=== PATIENT | female | born 1945 | race Caucasian/White ===

== ENCOUNTER 2018-05-12 06:33 | Inpatient (IN) ==
[2018-05-05 12:22] LABS: Appearance,Urine CLEAR; Bilirubin,Urine NEG (NEG); Color,Urine YELLOW; Glucose,Urine (UA) NEGATIVE (NEG); Leukocyte Esterase,Urine NEG /uL (NEG); Protein,Urine NEG (NEG); Specific Gravity,Urine 1.011 (1.000-1.035); Urine Blood NEG mg/dL (<0.03); Urobilinogen,Urine NEG (NEG)
[2018-05-05 12:27] LABS: Basophils # (Auto) 0 K/mcL (0.0-0.3); Basophils % (Auto) 0.6 % (0.0-2.0); Eosinophils # (Auto) 0.1 K/mcL (0.0-0.7); Eosinophils % (Auto) 1.6 % (0.0-7.0); Granulocytes % (Auto) 66.4 % (38.0-78.0); Lymphocytes # (Auto) 1.6 K/mcL (1.5-4.8); Lymphocytes % (Auto) 24.4 % (15.5-49.0); Mean Corpuscular HGB Conc 31.8 g/dL (31.0-36.0); Monocytes # (Auto) 0.5 K/mcL (0.1-0.9); Platelet Count 240 K/mcL (140-440); RBC 4.88 M/mcL (4.00-5.20); Red Cell Distribution Width 13.9 % (11.5-14.5)
[2018-05-05 12:28] LABS: Blood Urea Nitrogen 18 mg/dl (8-23)
[2018-05-12] MEDS ORDERED: ceFAZolin 1 GM VIAL IV SCH (07:00)
[2018-05-12] MEDS ORDERED: 0.9 % SODIUM CHLORIDE 9 ML, KETOROLAC 30 MG, ROPIVACAINE HCL/PF 49.5 ML, EPINEPHrine 0.... IJ SCH (07:00)
[2018-05-12] MEDS ORDERED: GENTAMICIN SULFATE 800 MG/20 ML VIAL IR ONE (09:44)
[2018-05-12] MEDS ORDERED: MIDAZOLAM 2 MG/2 ML VIAL IV ONE (10:20)
[2018-05-12] MEDS ORDERED: LIDOCAINE HCL/PF 100 MG/5 ML SYRINGE IV ONE (10:20)
[2018-05-12] MEDS ORDERED: DEXAMETHASONE 10 MG/ML VIAL IV ONE (10:20)
[2018-05-12] MEDS ORDERED: fentaNYL 100 MCG/2 ML VIAL IV ONE (10:20)
[2018-05-12] MEDS ORDERED: ONDANSETRON 4 MG/2 ML VIAL IV ONE (10:20)
[2018-05-12] MEDS ORDERED: GLYCOPYRROLATE 0.2 MG/ML VIAL IV ONE (10:20)
[2018-05-12] MEDS ORDERED: ROPIVACAINE HCL/PF 20 ML VIAL IJ ONE (10:20)
[2018-05-12] MEDS ORDERED: KETAMINE 100 MG/ML ML IV ONE (10:20)
[2018-05-12] MEDS ORDERED: PROPOFOL 200 MG/20 ML VIAL IV ONE (10:20)
[2018-05-12] MEDS ORDERED: TRANEXAMIC ACID 1,000 MG/10 ML VIAL IV ONE (10:20)
[2018-05-12] MEDS ORDERED: ONDANSETRON 4 MG/2 ML VIAL IV PRN ×2 (12:31→12:56)
[2018-05-12] MEDS ORDERED: METHOCARBAMOL 750 MG TABLET PO PRN (12:31)
[2018-05-12] MEDS ORDERED: BISACODYL 10 MG SUPP.RECT PR PRN (12:31)
[2018-05-12] MEDS ORDERED: BENZOCAINE/MENTHOL 1 LOZENGE PO PRN ×2 (12:31→12:56)
[2018-05-12] MEDS ORDERED: POLYETHYLENE GLYCOL 3350 17 GM PACKET PO PRN (12:31)
[2018-05-12] MEDS ORDERED: FLEETS ADULT ENEMA PR PRN (12:31)
[2018-05-12] MEDS ORDERED: MAGNESIUM HYDROXIDE 30 ML ORAL.SUSP PO PRN (12:31)
[2018-05-12] MEDS ORDERED: traMADol 50 MG TABLET PO PRN (12:35)
--- NOTE | 2018-05-12 12:47 | Brief Operative Note ---
Date of procedure: 05/12/18 Pre-op diagnosis: djd right knee Post-op diagnosis: same Procedure: MARTINA TKR Grafts/Implants: Yes (TRIATHLON KNEE) Anesthesia: GETA Complications: none Surgeon: Trung Hoover Pump Mechanic: Thiago Sheldon Specimens Removed/Pathology: none sent Condition: stable Disposition: PACU
[2018-05-12] MEDS ORDERED: METHOCARBAMOL 1,000 MG/10 ML VIAL IV PRN (12:56)
[2018-05-12] MEDS ORDERED: IPRATROPIUM/ALBUTEROL 3 ML AMPUL.NEB NEB PRN (12:56)
[2018-05-12] MEDS ORDERED: MEPERIDINE 25 MG/ML SYRINGE IV PRN (12:56)
[2018-05-12] MEDS ORDERED: fentaNYL 100 MCG/2 ML VIAL IV PRN (12:56)
[2018-05-12] MEDS ORDERED: LACTATED RINGERS 250 ML IV PRN (12:56)
[2018-05-12] MEDS ORDERED: NALOXONE HCL 0.4 MG/ML VIAL IV PRN (12:56)
[2018-05-12] MEDS ORDERED: ACETAMINOPHEN 1,000 MG/100 ML BOTTLE IV ONE (12:56)
[2018-05-12] MEDS ORDERED: FLUMAZENIL 0.1 MG/ML ML IV PRN (12:56)
[2018-05-12] MEDS ORDERED: LACTATED RINGERS 1,000 ML IV SCH (13:00)
[2018-05-12] MEDS: 0.45 % SODIUM CHLORIDE 1,000 ML IV SCH (13:29)
[2018-05-12] MEDS: 0.9 % SODIUM CHLORIDE 10 ML SYRINGE IV SCH (13:35)
[2018-05-12] MEDS: HYDROmorphone 2 MG/ML VIAL IV PRN ×2 (14:01→21:09)
--- NOTE | 2018-05-12 14:04 | XRay Report ---
CLINICAL INFORMATION: Post-op total knee. COMPARISON: None. FINDINGS: Total knee prosthesis is anatomically aligned. No osseous abnormality. Soft tissues swelling and gas seen in the expected IMPRESSION: Negative Interpreted and Authenticated by: Anthony Stewart 05/12/18
--- NOTE | 2018-05-12 14:15 | Operative Note ---
DATE OF OPERATION: 05/12/2018 PREOPERATIVE DIAGNOSIS: Degenerative joint disease, right knee. POSTOPERATIVE DIAGNOSIS: Degenerative joint disease, right knee. PROCEDURE: MARTINA robotic-assisted total knee replacement. SURGEON: Trung Hoover MD WOODWIND REEDS CUTTER: Thiago Sheldon PA-C ANESTHESIA: General done by Robert Salmon CRNA TOURNIQUET TIME: 85 minutes. ESTIMATED BLOOD LOSS: 250 mL SUMMARY OF PROCEDURE: General anesthesia was attained. The right knee was prepped and draped. Stab incisions were made to place the array in the femur and the tibia. These were opened using a clamp. Unicortical pins were placed into the femur and into the tibia and then the arrays attached. An incision was made from the quadriceps to the tibial tubercle. It was taken down sharply to the quadriceps and medial retinaculum. The quadriceps was split longitudinally as was the medial retinaculum. The patella was mobilized laterally. The knee was exposed. The anterior menisci were resected. The PCL was released. The PCL was left intact. The femur was exposed. The soft tissue was elevated off the anterior femur. The hip center was located by rotating the right knee in a clockwise direction. Osteophytes were removed. The pins were placed for a checkpoint in the femur and in the tibia. Landmarks were confirmed using the bSafe system with about 40 landmarks on each of the two bones. The robotic arm was then moved in. The tibial cut was made followed by the posterior femur, anterior femur, anterior bevel, distal femur and then the posterior bevel. The femur sized to a 4. The tibia sized to a 4. The patella was everted. It measured 25 mm in diameter. A measured resection was done of 10 mm down to 15. The patella sized to a 35. The best combination of range of motion with stability throughout was with a 12 mm insert. The no-touch test showed a lateral release was needed. The components were next cemented in. Excess cement was removed. After the cement had hardened in full extension the knee was placed in 30 degrees of flexion. The tourniquet was let down. All bleeding points were coagulated. The knee was irrigated throughout with normal saline as well as with the IrriSept. Bleeding points were stopped with the Bovie. The quadriceps was closed in two layers using buried #2 FiberWire as was the medial retinaculum. The second layer was a running locking 0 Maxon. The subcutaneous tissue was closed with 2-0 Monocryl, which were buried and then the skin was closed with Dermabond. The portals where the pins were placed for the arrays were closed with running 4-0 nylon. During closure, the knee was injected throughout with multimodal solution for postoperative analgesia. Sponge and needle count was correct. A sterile compressive dressing was applied. The patient tolerated the procedure well and was taken to the recovery room in stable condition. [id number] Job ID: [id number] Doc ID: [id number] Trung Hoover MD
[2018-05-12] MEDS: HYDROcodone/APAP 10/325MG TABLET PO PRN (18:02)
[2018-05-12] MEDS: ceFAZolin 1 GM VIAL IV SCH (18:02)
[2018-05-12] MEDS: OLMESARTAN MEDOXOMIL 20 MG TABLET PO SCH (21:16)
[2018-05-12] MEDS: DOCUSATE SODIUM 100 MG CAPSULE PO SCH (21:16)
[2018-05-12] MEDS: SENNOSIDES 1 TABLET PO SCH (21:16)
[2018-05-12] MEDS: VIT A,C & E/LUTEIN/MINERALS TABLET PO SCH (21:16)
[2018-05-12] MEDS: ASPIRIN 81 MG TAB.CHEW PO SCH (21:16)
[2018-05-12] MEDS: DULoxetine 30 MG CAPSULE PO SCH (21:16)
[2018-05-12] MEDS: CLOPIDOGREL 75 MG TABLET PO SCH (21:17)
[2018-05-12] MEDS: SIMVASTATIN 20 MG TABLET PO SCH (21:17)
[2018-05-12] MEDS: ASCORBIC ACID 500 MG TABLET PO SCH (21:17)
[2018-05-12] MEDS: HYDROCHLOROTHIAZIDE 25 MG TABLET PO SCH (21:17)
[2018-05-13] MEDS: ZOLPIDEM 5 MG TABLET PO PRN ×2 (00:03→23:28)
[2018-05-13] MEDS: HYDROcodone/APAP 10/325MG TABLET PO PRN ×6 (00:03→21:31)
[2018-05-13] MEDS: ceFAZolin 1 GM VIAL IV SCH (01:25)
[2018-05-13] MEDS: 0.9 % SODIUM CHLORIDE 10 ML SYRINGE IV SCH ×4 (04:21→23:29)
[2018-05-13] MEDS: 0.45 % SODIUM CHLORIDE 1,000 ML IV SCH ×2 (04:22→16:22)
--- NOTE | 2018-05-13 07:25 | Orthopedic Progress Note ---
Subjective Patient information: Note initiated : 05/13/18 at 7:22 am Service Date, if different from initiated Date: [] Patient: Obdulio Collins 73 y/o F admitted on 05/12/18 for Right Robotic Total Knee Arthroplasty. Chief Complaint: [] Principal diagnosis: s/p right TKA Interval history: Patient doing well and having no issues. She is able to ambulate to the bathroom with walker. She denies any CP, SOB, cough, or any other acute symptoms. Pertinent ROS: per hpi Objective Vital signs: Vital Signs Temp Pulse Pulse Resp BP BP Pulse Ox 05/13/18 04:00 97.6 F 68 16 124/67 96 05/13/18 00:00 98.3 F 80 16 119/64 94 05/12/18 18:35 98.0 F 86 20 132/70 94 05/12/18 16:22 96.8 F L 82 14 135/71 98 05/12/18 15:28 81 130/70 98 05/12/18 14:52 77 136/71 96 05/12/18 14:22 87 131/70 95 05/12/18 14:07 98 H 129/67 96 05/12/18 13:52 87 120/86 96 05/12/18 13:38 83 128/64 96 05/12/18 13:23 89 145/77 97 05/12/18 13:17 97.6 F 89 20 133/74 97 05/12/18 13:11 91 H 12 145/68 97 05/12/18 13:01 93 H 18 139/63 98 05/12/18 12:56 97 H 15 142/63 97 05/12/18 12:51 91 H 19 128/60 100 05/12/18 12:46 97.7 F 89 16 130/46 98 05/12/18 07:23 96.7 F L 104 H 20 150/83 96 Intake and Output 05/12/18 05/13/18 05/13/18 21:59 05:59 13:59 Intake Total 1520 1000 Output Total 275 1600 Balance 1245 -600 Intake: IV 1000 Sodium Chloride 0.45% 1,000 ml 1000 @ 75 mls/hr IV .[id number] [facility] Rx# :[id number] Oral 720 GI Tube Flush 800 Output: Void Amount 275 1600 Other: Meal Dinner Percent of Meal Consumed 100% Feeding Ability Independent Urine Appearance Clear Urine Color Dark Yellow Urine Odor Strong # Voids 1 Weight 230 lb Intake & Output: Intake & Output 05/12/18 05/13/18 05/13/18 21:59 05:59 13:59 Intake Total 1520 1000 Output Total 275 1600 Balance 1245 -600 Weight 230 lb Intake: IV 1000 Sodium Chloride 0.45% 1,000 ml 1000 @ 75 mls/hr IV .[id number] [facility] Rx# :[id number] Oral 720 GI Tube Flush 800 Output: Void Amount 275 1600 Other: Meal Dinner Percent of Meal Consumed 100% Feeding Ability Independent Urine Appearance Clear Urine Color Dark Yellow Urine Odor Strong # Voids 1 Dressing: Yes clean, Yes dry, Yes intact Weight bearing status: full Neurological exam IM: Yes neurovascular intact Extremities exam IM: No calf tenderness, Yes Foot pink and warm, Yes neurovascular intact - Labs CBC & BMP: 05/05/18 10:47 05/05/18 10:47 Labs: Orthopedic Labs 05/12/18 06:59 PT 12.6 INR 0.9 05/13/18 05/05/18 06:40 10:47 Hgb Pending 13.8 Hct Pending 43.4 Assessment and Plan - Narrative A/P Narrative: POD 1 s/p right TKA Continue PT and postop protocol, walker for weight bearing Case management Discharge in next 1-2 days Aquacell for discharge for 7 days
[2018-05-13] MEDS: ASPIRIN 81 MG TAB.CHEW PO SCH ×2 (08:54→21:32)
[2018-05-13] MEDS: DOCUSATE SODIUM 100 MG CAPSULE PO SCH ×2 (08:55→21:32)
[2018-05-13] MEDS: HYDROmorphone 2 MG/ML VIAL IV PRN ×2 (15:03→18:26)
[2018-05-13] MEDS: VIT A,C & E/LUTEIN/MINERALS TABLET PO SCH (21:10)
[2018-05-13] MEDS: CLOPIDOGREL 75 MG TABLET PO SCH (21:32)
[2018-05-13] MEDS: SIMVASTATIN 20 MG TABLET PO SCH (21:32)
[2018-05-13] MEDS: OLMESARTAN MEDOXOMIL 20 MG TABLET PO SCH (21:32)
[2018-05-13] MEDS: HYDROCHLOROTHIAZIDE 25 MG TABLET PO SCH (21:32)
[2018-05-13] MEDS: DULoxetine 30 MG CAPSULE PO SCH (21:32)
[2018-05-13] MEDS: SENNOSIDES 1 TABLET PO SCH (21:32)
[2018-05-13] MEDS: ASCORBIC ACID 500 MG TABLET PO SCH (21:33)
[2018-05-14] MEDS: HYDROcodone/APAP 10/325MG TABLET PO PRN ×2 (03:40→08:38)
[2018-05-14] MEDS: 0.9 % SODIUM CHLORIDE 10 ML SYRINGE IV SCH (06:00)
--- NOTE | 2018-05-14 07:07 | Discharge Summary ---
Ortho Discharge - TKA - Patient Instructions Diet: Regular Diet Activity: activity as tolerated, ambulate with assistive device, weight bearing as tolerated Total Knee Protocol: For Total Knee: Start ROM JEAN PIERRE with stationary bike or rocking chair. Work on gaining full extension of knee. Posterior dislocation precautions provided. Hip abductor strengthening and gait training instructions provided. Apply Cryocuff as instructed. Dressing Care: May shower in 2 days, Aquacel Ag - leave on for 5 days - Problem Maintenance (1) Knee osteoarthritis Status: Acute - Follow Up Plan Follow Up Appointments: Thiago Sheldon PA-C [Physician Hvac Sales Representative] - 05/25/18 11:20 am Disposition: Home, Self-Care Prognosis: Good Rehab Potential: Good I certify that the patient requires SNF services: No Overall status at discharge: patient is progressing back to baseline
--- NOTE | 2018-05-14 07:07 | Orthopedic Progress Note ---
Subjective Patient information: Note initiated : 05/14/18 at 7:05 am Service Date, if different from initiated Date: [] Patient: Obdulio Collins 73 y/o F admitted on 05/12/18 for Right Robotic Total Knee Arthroplasty. Chief Complaint: [] Principal diagnosis: s/p right TKA Interval history: doing well. no complaints Objective Vital signs: Vital Signs Temp Pulse Pulse Resp BP Pulse Ox 05/14/18 06:15 98.0 F 18 124/77 95 05/14/18 04:00 98.2 F 88 18 114/66 94 05/13/18 23:30 98.2 F 95 H 20 111/59 94 05/13/18 20:15 98.6 F 93 H 20 116/67 95 05/13/18 19:58 98.6 F 93 H 20 116/57 95 05/13/18 15:09 98.1 F 90 20 130/70 97 05/13/18 10:25 97.4 F 86 18 99/58 97 05/13/18 10:05 78 Intake and Output 05/13/18 05/14/18 05/14/18 21:59 05:59 13:59 Intake Total 240 600 Output Total 400 550 450 Balance -160 50 -450 Intake: Oral 240 600 Output: Void Amount 400 550 450 Other: Meal Dinner Percent of Meal Consumed 50% Urine Appearance Clear Urine Color Bright Yellow Bright Yellow Urine Odor Normal Normal # Voids 1 Weight 150 lb Intake & Output: Intake & Output 05/13/18 05/14/18 05/14/18 21:59 05:59 13:59 Intake Total 240 600 Output Total 400 550 450 Balance -160 50 -450 Weight 150 lb Intake: Oral 240 600 Output: Void Amount 400 550 450 Other: Meal Dinner Percent of Meal Consumed 50% Urine Appearance Clear Urine Color Bright Yellow Bright Yellow Urine Odor Normal Normal # Voids 1 Incision: Yes healing Incision clean and dry: Yes Dressing: Yes clean, Yes dry, Yes intact Weight bearing status: full Neurological exam IM: Yes abnormal gait, Yes alert, Yes oriented X3, Yes motor sensory intact, Yes neurovascular intact Extremities exam IM: No calf tenderness, Yes Foot pink and warm - Labs CBC & BMP: 05/13/18 06:40 05/05/18 10:47 Labs: Orthopedic Labs 05/12/18 06:59 PT 12.6 INR 0.9 05/14/18 05/13/18 05/05/18 05:16 06:40 10:47 Hgb Pending 11.8 L 13.8 Hct Pending 36.3 43.4 Assessment and Plan (1) Knee osteoarthritis s/p tka wbat pain control dvt prophylaxis plan home pt Status: Acute
[2018-05-14] MEDS: DOCUSATE SODIUM 100 MG CAPSULE PO SCH (08:38)
[2018-05-14] MEDS: ASPIRIN 81 MG TAB.CHEW PO SCH (08:38)
== END 2018-05-14 10:05 | disposition home or self-care (01) | DRG 470 ==
LOC: MEDSUR 06:33
PROVIDERS: ADMIT Orthopaedic Surgery Foot and Ankle Surgery; ATTEND Orthopaedic Surgery Sports Medicine